=== PATIENT | female | born 1935 | race Caucasian/White ===

== ENCOUNTER 2025-02-14 13:54 | Emergency (ER) | payer MEDICARE, BC | END 2025-02-14 18:00 | disposition home or self-care (01) | LOC: JP.ED 13:54 | DX: S70.02XA Contusion of left hip, initial encounter (principal); Z79.899 Other long term (current) drug therapy; Z90.710 Acquired absence of both cervix and uterus; W18.39XA Other fall on same level, initial encounter; Y93.89 Activity, other specified | CPT/HCPCS: 72192; 73502-26-LT; 73502-LT; 76377; 99283; 99285 ==